=== PATIENT | male | born 1980 | race African-American/Black ===

== ENCOUNTER 2018-01-16 17:34 | Emergency (ER) | payer OTHER ==
[~2018-01-16] VITALS: Ht 185.4 cm; Wt 8.6 kg
[2018-01-16] MEDS ORDERED: NAPROSYN500 MG PO (18:35)
[2018-01-16] MEDS ORDERED: KEFLEX500 M1 PO (18:35)
[2018-01-16 19:20] VITALS: BP 122/80
== END 2018-01-16 19:21 | disposition home or self-care (01) ==
LOC: ER 17:34
DX: M60.232 Foreign body granuloma of soft tissue, not elsewhere classified, left forearm (principal); W34.010A Accidental discharge of airgun, initial encounter; Y93.89 Activity, other specified; Y92.89 Other specified places as the place of occurrence of the external cause; Y99.8 Other external cause status

== ENCOUNTER 2018-02-17 15:43 | Emergency (ER) | payer OTHER ==
[~2018-02-17] VITALS: Ht 185.4 cm; Wt 86.2 kg
--- NOTE | ~2018-02-17 | EKG ---
[address] [place] [address] ELECTROCARDIOGRAM REPORT Name: MICHAEL MARTINEZ Room #: DEP TORSTEN Lam#: [id number] Admission: 02/17/18 Attend Phys: Discharge: 02/17/18 Date of : 82 Report #: [id number] THIS REPORT FOR: //name// [facility] ED Test Date: 2018-02-17 Test Time: 15:43:01 Pat Name: MICHAEL MARTINEZ Department: Room: Gender: [employer] Hand: [facility] : 1980 Requested By: Jenny Moon Order Number: [id number] MD: Alfredo Rodriguez Measurements Intervals [place] Rate: 86 P: 74 ND: 147 QRS: 6 QRSD: 107 T: 48 QT: 349 QTc: 418 Interpretive Statements Sinus rhythm RSR' in V1 or V2, right VCD No previous ECG available for comparison Electronically Signed On 02-18-2018 11:47:31 CDT by Alfredo Rodriguez [email or web address] <ELECTRONICALLY SIGNED> By: Alfredo Rodriguez MD, [facility] 02/18/18 1147 1543 1543 Alfredo Rodriguez MD, FACC /EPI
[~2018-02-17 15:43] MED LIST: KEFLEX500 M1 PO; NAPROSYN500 MG PO
[2018-02-17] MEDS ORDERED: NORCO 5-325 TA1 EACH PO (15:56)
[2018-02-17] MEDS ORDERED: PENICILLIN VK500 M1 PO (15:56)
[2018-02-17 17:06] VITALS: BP 139/76
== END 2018-02-17 17:07 | disposition home or self-care (01) ==
LOC: ER 15:43
DX: K04.7 Periapical abscess without sinus (principal); R06.02 Shortness of breath